=== PATIENT | male | born 1955 | race Caucasian/White ===

== ENCOUNTER 2022-06-04 09:17 | Inpatient (IN) | payer OTHER ==
[~2022-06-04] VITALS: Ht 180.3 cm; Wt 76.7 kg
[2022-06-04 09:22] VITALS: BP_SYST 146
[2022-06-04] MEDS ORDERED: NACL 0.9% 1,000 ML IV ONE (10:15)
[2022-06-04 10:43] LABS: BASOPHILS % (AUTO) 0.6 % (0.0-2.0); EOSINOPHILS # (AUTO) 0.2 K/uL (0.0-0.4); EOSINOPHILS % (AUTO) 2.3 % (0.0-4.0); HEMATOCRIT 43.9 % (36-54); HEMOGLOBIN 15.2 g/dL (14.0-18.0); LYMPHOCYTES # (AUTO) 0.8 K/uL (1.0-5.5); LYMPHOCYTES % (AUTO) 12.3 % (20.5-51.5); MEAN CORPUSCULAR HEMOGLOBIN 30 pg (27-31); MEAN CORPUSCULAR HGB CONC 35 % (32-36); MEAN CORPUSCULAR VOLUME 87 fL (79.0-98.0); MONOCYTES # (AUTO) 0.6 K/uL (0.0-1.0); MONOCYTES % (AUTO) 9.6 % (1.7-9.3); NEUTROPHILS # (AUTO) 4.9 K/uL (1.8-7.7); NEUTROPHILS % (AUTO) 75.2 % (40.0-70.0); PLATELET COUNT (AUTO) 245 K/uL (130-430); RED BLOOD CELL COUNT(AUTO) 5.06 MIL/uL (4.2-6.2); RED CELL DISTRIBUTION WIDTH 14.9 % (9.0-15.0); WHITE BLOOD COUNT (AUTO) 6.5 K/uL (4.8-10.8)
[2022-06-04 11:01] LABS: PROTHROMBIN TIME 10.5 SECS (9.5-12.5)
[2022-06-04 11:08] LABS: ANION GAP 7 (5-15); CALCIUM 9.8 mg/dL (8.4-11.0); CHLORIDE 98 mmol/L (98-107); CREATININE 0.87 mg/dL (0.55-1.30); GFR AFRICAN AMERICAN 112 mL/min (>90); GLUCOSE 233 mg/dL (70-99); POTASSIUM 3.1 mmol/L (3.5-5.1); SODIUM SERUM 136 mmol/L (136-145); UREA NITROGEN, BLOOD 10 mg/dL (8-21)
[2022-06-04 11:12] LABS: ALANINE AMINOTRANSFERASE 862 U/L (12-78); ALBUMIN 2.9 g/dL (3.4-4.8); ASPARTATE AMINOTRANSFERASE 487 U/L (10-37); TOTAL BILIRUBIN 6.7 mg/dL (0.0-1.0)
[2022-06-04 11:15] LABS: ACETAMINOPHEN < 1 ug/mL (1-30); ALCOHOL, BLOOD < 3 mg/dL (<10)
[2022-06-04 11:38] LABS: BARBITURATE, URINE NEGATIVE (NEG <=200); BENZODIAZEPINE, URINE NEGATIVE (NEG <=150); CANNABINOID, URINE NEGATIVE (NEG <=50); COCAINE, URINE NEGATIVE (NEG <=150); METHAMPHETAMINES SCREEN,URINE NEGATIVE (NEG <=500); OPIATE, URINE NEGATIVE (NEG <=100); PHENCYCLIDINE SCREEN,URINE NEGATIVE (NEG <=25); UR TRICYCLIC ANTIDEPRESSANTS NEGATIVE (NEG <=300); URINE AMPHETAMINE NEGATIVE (NEG <=500); URINE METHADONE NEGATIVE (NEG <=200); URINE OXYCODONE SCREEN NEGATIVE (NEG <=100); URINE PROPOXYPHENE SCREEN NEGATIVE (NEG <=300)
[2022-06-04] MEDS ORDERED: DIVA500T4 PO (11:41)
[2022-06-04] MEDS ORDERED: DULO60CA42 PO (11:41)
[2022-06-04] MEDS ORDERED: LIP40 PO (11:41)
[2022-06-04] MEDS ORDERED: AMLO5TAB92 PO (11:41)
[2022-06-04] MEDS ORDERED: LOSA50TA28 PO (11:41)
[2022-06-04] MEDS ORDERED: PIOG15TA8 PO (11:41)
[2022-06-04] MEDS ORDERED: IBUPROFEN 600 MG TABLET PO ONE (12:15)
[2022-06-04] MEDS ORDERED: NACL 0.9% 1,000 ML IV SCH (12:45)
[2022-06-04] MEDS ORDERED: ACETAMINOPHEN 500 MG TABLET PO PRN (14:00)
[2022-06-04] MEDS ORDERED: ZOLPIDEM TARTRATE 5 MG TABLET PO PRN (14:00)
[2022-06-04] MEDS ORDERED: guaiFENesin/DEXTROMETHORPHAN 10 ML UDC PO PRN (14:00)
[2022-06-04] MEDS ORDERED: ONDANSETRON HCL 4 MG/2 ML VIAL IVP PRN (14:00)
[2022-06-04 14:25] LABS: CLARITY/URINE CLEAR (CLEAR); COLOR,URINE ORANGE (YELLOW); GLUCOSE,URINE 1+ (NEGATIVE); KETONES,URINE NEGATIVE (NEGATIVE); LEUKOCYTE ESTERASE ,URINE NEGATIVE (NEGATIVE); NITRITE, URINE NEGATIVE (NEGATIVE); PH,URINE 6.5 (5.0-8.0); PROTEIN URINE NEGATIVE (NEGATIVE); UROBILINOGEN,URINE 0.2 (0.2-1.0)
[2022-06-04 14:31] LABS: BLOOD, URINE TRACE (NEGATIVE)
[2022-06-04 14:33] LABS: BILIRUBIN,URINE 2+ (NEGATIVE)
[2022-06-04 14:58] LABS: BACTERIA,URINE None Seen /HPF (None Seen); RBC,URINE 0-3 /HPF (0-3); WBC,URINE NONE SEEN /HPF (0-3)
[2022-06-04 14:59] LABS: MUCUS,URINE 1+ /LPF (None Seen)
[2022-06-04 15:22] LABS: FREE T4 (FREE THYROXINE) 1.2 ng/dl (0.8-1.5); THYROID STIMULATING HORMONE 1.7 uIu/mL (0.36-3.74)
[2022-06-04 16:00] VITALS: BP_SYST 142
[2022-06-04] MEDS: POTASSIUM CHLORIDE 20 MEQ TAB.PRT.SR PO PRN (18:01)
[2022-06-04] MEDS ORDERED: POTASSIUM CHLORIDE 20 MEQ TAB.PRT.SR ONE (18:03)
[2022-06-04] MEDS: HYDROcodone/ACETAMIN 7.5-325 MG TAB PO PRN (20:51)
[2022-06-04] MEDS: D5NS 1,000 ML IV SCH (22:20)
[2022-06-05 00:25] VITALS: BP_SYST 138
[2022-06-05 00:56] VITALS: BP_SYST 140
[2022-06-05] MEDS: HYDROcodone/ACETAMIN 7.5-325 MG TAB PO PRN ×3 (02:48→18:33)
[2022-06-05 06:42] LABS: BASOPHILS # (AUTO) 0.1 K/uL (0.0-0.2); EOSINOPHILS # (AUTO) 0.2 K/uL (0.0-0.4); EOSINOPHILS % (AUTO) 4.3 % (0.0-4.0); HEMATOCRIT 37.1 % (36-54); HEMOGLOBIN 12.7 g/dL (14.0-18.0); LYMPHOCYTES # (AUTO) 0.8 K/uL (1.0-5.5); LYMPHOCYTES % (AUTO) 16.4 % (20.5-51.5); MEAN CORPUSCULAR HEMOGLOBIN 30 pg (27-31); MEAN CORPUSCULAR HGB CONC 34 % (32-36); MEAN CORPUSCULAR VOLUME 87 fL (79.0-98.0); MONOCYTES # (AUTO) 0.6 K/uL (0.0-1.0); MONOCYTES % (AUTO) 12.6 % (1.7-9.3); NEUTROPHILS # (AUTO) 3.3 K/uL (1.8-7.7); NEUTROPHILS % (AUTO) 65.7 % (40.0-70.0); PLATELET COUNT (AUTO) 214 K/uL (130-430); RED BLOOD CELL COUNT(AUTO) 4.27 MIL/uL (4.2-6.2); RED CELL DISTRIBUTION WIDTH 14.6 % (9.0-15.0)
[2022-06-05 06:53] LABS: PROTHROMBIN TIME 10.3 SECS (9.5-12.5)
[2022-06-05 06:59] LABS: CALCIUM 8.8 mg/dL (8.4-11.0); CREATININE 0.64 mg/dL (0.55-1.30); POTASSIUM 3.4 mmol/L (3.5-5.1)
[2022-06-05 08:00] VITALS: BP_SYST 175
[2022-06-05] MEDS: MORPHINE 2 MG/ML INJ. SYRINGE IVP PRN ×2 (09:01→16:09)
[2022-06-05 10:05] LABS: ALBUMIN 2.2 g/dL (3.4-4.8); TOTAL BILIRUBIN 5.2 mg/dL (0.0-1.0)
[2022-06-05] MEDS: D5NS 1,000 ML IV SCH (11:05)
[2022-06-05] MEDS ORDERED: amLODIPine BESYLATE 5 MG TABLET PO ONE (13:15)
[2022-06-05] MEDS ORDERED: LOSARTAN POTASSIUM 50 MG TABLET (COZAAR) PO ONE (13:30)
[2022-06-05] MEDS ORDERED: PIOGLITAZONE HCL 15 MG TABLET PO ONE (13:30)
[2022-06-05] MEDS ORDERED: DIVALPROEX SODIUM 500 MG TAB.SR.24H (DEPAKOTE ER) PO ONE (13:30)
[2022-06-05] MEDS ORDERED: ATORVASTATIN 20 MG TABLET PO ONE (13:30)
[2022-06-05] MEDS ORDERED: DULoxetine HCL 30 MG CAPSULE.DR (CYMBALTA) PO ONE (13:30)
[2022-06-05 16:00] VITALS: BP_SYST 153
[2022-06-05] MEDS: PANTOPRAZOLE SODIUM 40 MG TAB PO SCH (18:21)
[2022-06-05] MEDS: INSULIN REGULAR, HUMAN 100 UNITS/ML, 10 ML VIAL (humuLIN R) SUBCUT PRN ×2 (18:25→20:46)
[2022-06-06] MEDS: HYDROcodone/ACETAMIN 7.5-325 MG TAB PO PRN ×3 (02:28→20:47)
[2022-06-06 06:54] LABS: ALBUMIN 2.6 g/dL (3.4-4.8); CALCIUM 8.9 mg/dL (8.4-11.0); CREATININE 0.61 mg/dL (0.55-1.30); POTASSIUM 3.4 mmol/L (3.5-5.1); TOTAL BILIRUBIN 5.9 mg/dL (0.0-1.0)
[2022-06-06 07:06] LABS: AFP, TUMOR MARKER 1.6 ng/mL (0.0-8.4)
[2022-06-06 07:07] LABS: BASOPHILS # (AUTO) 0.1 K/uL (0.0-0.2); BASOPHILS % (AUTO) 1.6 % (0.0-2.0); EOSINOPHILS # (AUTO) 0.3 K/uL (0.0-0.4); EOSINOPHILS % (AUTO) 3.9 % (0.0-4.0); HEMATOCRIT 36.1 % (36-54); HEMOGLOBIN 13.1 g/dL (14.0-18.0); LYMPHOCYTES # (AUTO) 1.6 K/uL (1.0-5.5); LYMPHOCYTES % (AUTO) 18.6 % (20.5-51.5); MEAN CORPUSCULAR HEMOGLOBIN 31 pg (27-31); MEAN CORPUSCULAR HGB CONC 36 % (32-36); MEAN CORPUSCULAR VOLUME 86 fL (79.0-98.0); MONOCYTES # (AUTO) 0.8 K/uL (0.0-1.0); MONOCYTES % (AUTO) 9.5 % (1.7-9.3); NEUTROPHILS # (AUTO) 5.7 K/uL (1.8-7.7); NEUTROPHILS % (AUTO) 66.4 % (40.0-70.0); PLATELET COUNT (AUTO) 375 K/uL (130-430); RED BLOOD CELL COUNT(AUTO) 4.19 MIL/uL (4.2-6.2); RED CELL DISTRIBUTION WIDTH 15.2 % (9.0-15.0); WHITE BLOOD COUNT (AUTO) 8.6 K/uL (4.8-10.8)
[2022-06-06] MEDS: INSULIN REGULAR, HUMAN 100 UNITS/ML, 10 ML VIAL (humuLIN R) SUBCUT PRN ×3 (07:57→16:54)
[2022-06-06 08:14] VITALS: BP_SYST 160
[2022-06-06] MEDS: PANTOPRAZOLE SODIUM 40 MG TAB PO SCH (09:00)
[2022-06-06] MEDS ORDERED: DIATR MEGLU/DIATRIZ SOD 30 ML SOLUTION PO ONE (09:07)
[2022-06-06] MEDS: amLODIPine BESYLATE 5 MG TABLET PO SCH (09:09)
[2022-06-06] MEDS: PIOGLITAZONE HCL 15 MG TABLET PO SCH (09:09)
[2022-06-06] MEDS: ATORVASTATIN 20 MG TABLET PO SCH (09:10)
[2022-06-06] MEDS: LOSARTAN POTASSIUM 50 MG TABLET (COZAAR) PO SCH (09:10)
[2022-06-06] MEDS: DULoxetine HCL 30 MG CAPSULE.DR (CYMBALTA) PO SCH (09:11)
[2022-06-06 10:06] LABS: ANTI NUCLEAR AB WITH REFLEX Negative (Negative)
[2022-06-06] MEDS ORDERED: iohexoL 350 mgI/mL, 100 ML INFUS..BTL IV ONE (10:18)
[2022-06-06] MEDS: DIVALPROEX SODIUM 500 MG TAB.SR.24H (DEPAKOTE ER) PO SCH (11:21)
[2022-06-06] MEDS: POTASSIUM CHLORIDE 20 MEQ TAB.PRT.SR PO PRN (11:22)
[2022-06-06 12:00] VITALS: BP_SYST 154
[2022-06-06 14:06] LABS: HEPATITIS A AB, IgM Negative (Negative); HEPATITIS B CORE AB, IgM Negative (Negative); HEPATITIS B SURFACE AG Negative (Negative)
[2022-06-06 17:02] VITALS: BP_SYST 145
[2022-06-06 20:00] VITALS: BP_SYST 146
[2022-06-07] VITALS: BP_SYST 140
[2022-06-07 04:00] VITALS: BP_SYST 139
[2022-06-07] MEDS: HYDROcodone/ACETAMIN 7.5-325 MG TAB PO PRN ×2 (05:09→18:11)
[2022-06-07 06:19] LABS: BASOPHILS # (AUTO) 0.1 K/uL (0.0-0.2); EOSINOPHILS # (AUTO) 0.2 K/uL (0.0-0.4); EOSINOPHILS % (AUTO) 3.5 % (0.0-4.0); HEMATOCRIT 41.8 % (36-54); HEMOGLOBIN 14.5 g/dL (14.0-18.0); LYMPHOCYTES # (AUTO) 1.1 K/uL (1.0-5.5); LYMPHOCYTES % (AUTO) 19.2 % (20.5-51.5); MEAN CORPUSCULAR HEMOGLOBIN 30 pg (27-31); MEAN CORPUSCULAR HGB CONC 35 % (32-36); MEAN CORPUSCULAR VOLUME 86 fL (79.0-98.0); MONOCYTES # (AUTO) 0.6 K/uL (0.0-1.0); MONOCYTES % (AUTO) 10.6 % (1.7-9.3); NEUTROPHILS # (AUTO) 3.9 K/uL (1.8-7.7); NEUTROPHILS % (AUTO) 65.7 % (40.0-70.0); PLATELET COUNT (AUTO) 232 K/uL (130-430); RED BLOOD CELL COUNT(AUTO) 4.85 MIL/uL (4.2-6.2); RED CELL DISTRIBUTION WIDTH 15.3 % (9.0-15.0); WHITE BLOOD COUNT (AUTO) 5.9 K/uL (4.8-10.8)
[2022-06-07] MEDS: INSULIN REGULAR, HUMAN 100 UNITS/ML, 10 ML VIAL (humuLIN R) SUBCUT PRN ×4 (06:23→20:47)
[2022-06-07] MEDS: INDOMETHACIN 50 MG SUPP.RECT RC ONE ×2 (07:00→08:10)
[2022-06-07 07:39] LABS: PROTHROMBIN TIME 10.3 SECS (9.5-12.5)
[2022-06-07] MEDS ORDERED: GLYCOPYRROLATE 0.2 MG/ML VIAL ONE (07:45)
[2022-06-07] MEDS ORDERED: ONDANSETRON HCL 4 MG/2 ML VIAL ONE (07:45)
[2022-06-07] MEDS ORDERED: PHENYLEPHRINE HCL 10 MG/ML VIAL (NEOSYNEPHRINE) ONE (07:45)
[2022-06-07] MEDS ORDERED: NS 1000 ML IV.SOLN IV ONE (07:45)
[2022-06-07] MEDS ORDERED: KETOROLAC TROMETHAMINE 30 MG VIAL ONE (07:45)
[2022-06-07] MEDS ORDERED: METOCLOPRAMIDE HCL 10 MG/2 ML VIAL ONE (07:45)
[2022-06-07] MEDS ORDERED: DEXAMETHASONE SOD PHOSPHATE 4 MG/ML VIAL ONE (07:45)
[2022-06-07] MEDS ORDERED: PROPOFOL 200MG/ 20ML VIAL (DIPRIVAN) IV ONE (07:45)
[2022-06-07] MEDS ORDERED: ePHEDrine sulfate 50 MG/ML VIAL ONE (07:45)
[2022-06-07] MEDS ORDERED: SEVOFLURANE 15 MIN GAS INH ONE (07:45)
[2022-06-07] MEDS ORDERED: ROCURONIUM BROMIDE 10 MG/ML (ZEMURON) ONE (07:45)
[2022-06-07 08:03] LABS: ALBUMIN 2.9 g/dL (3.4-4.8); CALCIUM 9.7 mg/dL (8.4-11.0); CREATININE 0.85 mg/dL (0.55-1.30); POTASSIUM 3.8 mmol/L (3.5-5.1)
[2022-06-07] MEDS ORDERED: HYDROmorphone 1 MG/ML INJ. CARTRIDGE IVP PRN (08:45)
[2022-06-07] MEDS ORDERED: NACL 0.9% 1,000 ML IV SCH (08:45)
[2022-06-07] MEDS ORDERED: KETOROLAC TROMETHAMINE 30 MG VIAL IVP PRN (08:45)
[2022-06-07] MEDS ORDERED: ONDANSETRON HCL 4 MG/2 ML VIAL IVP PRN (08:45)
[2022-06-07] MEDS: DULoxetine HCL 30 MG CAPSULE.DR (CYMBALTA) PO SCH (09:00)
[2022-06-07] MEDS: ATORVASTATIN 20 MG TABLET PO SCH (11:26)
[2022-06-07] MEDS: PIOGLITAZONE HCL 15 MG TABLET PO SCH (11:26)
[2022-06-07] MEDS: LOSARTAN POTASSIUM 50 MG TABLET (COZAAR) PO SCH (11:27)
[2022-06-07] MEDS: PANTOPRAZOLE SODIUM 40 MG TAB PO SCH (11:27)
[2022-06-07] MEDS: amLODIPine BESYLATE 5 MG TABLET PO SCH (11:27)
[2022-06-07 11:29] VITALS: BP_SYST 143
[2022-06-07] MEDS: DIVALPROEX SODIUM 500 MG TAB.SR.24H (DEPAKOTE ER) PO SCH (11:54)
[2022-06-07 13:06] LABS: ANTI-SMOOTH MUSCLE AB 1 Units (0-19)
[2022-06-07 16:01] VITALS: BP_SYST 116
[2022-06-07 20:00] VITALS: BP_SYST 117
[2022-06-08] VITALS: BP_SYST 119
[2022-06-08] MEDS: HYDROcodone/ACETAMIN 7.5-325 MG TAB PO PRN ×2 (03:10→12:03)
[2022-06-08 04:00] VITALS: BP_SYST 130
[2022-06-08 07:07] LABS: BASOPHILS % (AUTO) 0.5 % (0.0-2.0); EOSINOPHILS # (AUTO) 0.1 K/uL (0.0-0.4); EOSINOPHILS % (AUTO) 1.2 % (0.0-4.0); HEMATOCRIT 39.2 % (36-54); HEMOGLOBIN 13.7 g/dL (14.0-18.0); LYMPHOCYTES # (AUTO) 1.2 K/uL (1.0-5.5); LYMPHOCYTES % (AUTO) 15.8 % (20.5-51.5); MEAN CORPUSCULAR HEMOGLOBIN 30 pg (27-31); MEAN CORPUSCULAR HGB CONC 35 % (32-36); MEAN CORPUSCULAR VOLUME 87 fL (79.0-98.0); MONOCYTES # (AUTO) 0.8 K/uL (0.0-1.0); MONOCYTES % (AUTO) 9.7 % (1.7-9.3); NEUTROPHILS # (AUTO) 5.7 K/uL (1.8-7.7); NEUTROPHILS % (AUTO) 72.8 % (40.0-70.0); PLATELET COUNT (AUTO) 216 K/uL (130-430); RED BLOOD CELL COUNT(AUTO) 4.49 MIL/uL (4.2-6.2); RED CELL DISTRIBUTION WIDTH 15.4 % (9.0-15.0); WHITE BLOOD COUNT (AUTO) 7.8 K/uL (4.8-10.8)
[2022-06-08 07:36] LABS: ALBUMIN 2.7 g/dL (3.4-4.8); CALCIUM 9.7 mg/dL (8.4-11.0); CREATININE 0.81 mg/dL (0.55-1.30); POTASSIUM 3.9 mmol/L (3.5-5.1); TOTAL BILIRUBIN 6.6 mg/dL (0.0-1.0)
[2022-06-08 08:00] VITALS: BP_SYST 158
[2022-06-08] MEDS: PANTOPRAZOLE SODIUM 40 MG TAB PO SCH (08:57)
[2022-06-08] MEDS: DULoxetine HCL 30 MG CAPSULE.DR (CYMBALTA) PO SCH (08:57)
[2022-06-08] MEDS: LOSARTAN POTASSIUM 50 MG TABLET (COZAAR) PO SCH (08:57)
[2022-06-08] MEDS: ATORVASTATIN 20 MG TABLET PO SCH (08:58)
[2022-06-08] MEDS: amLODIPine BESYLATE 5 MG TABLET PO SCH (08:58)
[2022-06-08] MEDS: PIOGLITAZONE HCL 15 MG TABLET PO SCH (08:58)
[2022-06-08] MEDS: DOCUSATE SODIUM 100 MG/10 ML UDC PO PRN (09:11)
[2022-06-08] MEDS: DIVALPROEX SODIUM 500 MG TAB.SR.24H (DEPAKOTE ER) PO SCH (11:51)
[2022-06-08 16:00] VITALS: BP_SYST 138
[2022-06-08] MEDS: INSULIN REGULAR, HUMAN 100 UNITS/ML, 10 ML VIAL (humuLIN R) SUBCUT PRN ×2 (17:52→20:58)
[2022-06-08 20:00] VITALS: BP_SYST 135
[2022-06-09] VITALS: BP_SYST 122
[2022-06-09] MEDS: DOCUSATE SODIUM 100 MG/10 ML UDC PO PRN (02:15)
[2022-06-09 04:00] VITALS: BP_SYST 125
[2022-06-09] MEDS: INSULIN REGULAR, HUMAN 100 UNITS/ML, 10 ML VIAL (humuLIN R) SUBCUT PRN ×4 (06:27→22:02)
[2022-06-09 07:05] LABS: BASOPHILS % (AUTO) 0.5 % (0.0-2.0); EOSINOPHILS # (AUTO) 0.2 K/uL (0.0-0.4); HEMATOCRIT 40.2 % (36-54); HEMOGLOBIN 13.8 g/dL (14.0-18.0); LYMPHOCYTES # (AUTO) 0.9 K/uL (1.0-5.5); LYMPHOCYTES % (AUTO) 9.3 % (20.5-51.5); MEAN CORPUSCULAR HEMOGLOBIN 30 pg (27-31); MEAN CORPUSCULAR HGB CONC 34 % (32-36); MEAN CORPUSCULAR VOLUME 87 fL (79.0-98.0); MONOCYTES % (AUTO) 9.8 % (1.7-9.3); NEUTROPHILS # (AUTO) 7.8 K/uL (1.8-7.7); NEUTROPHILS % (AUTO) 78.4 % (40.0-70.0); PLATELET COUNT (AUTO) 250 K/uL (130-430); RED BLOOD CELL COUNT(AUTO) 4.62 MIL/uL (4.2-6.2); RED CELL DISTRIBUTION WIDTH 15.2 % (9.0-15.0)
[2022-06-09 07:23] LABS: CALCIUM 10.1 mg/dL (8.4-11.0); CREATININE 0.9 mg/dL (0.55-1.30); POTASSIUM 3.8 mmol/L (3.5-5.1); TOTAL BILIRUBIN 8.2 mg/dL (0.0-1.0)
[2022-06-09 08:20] VITALS: BP_SYST 148
[2022-06-09] MEDS: PIOGLITAZONE HCL 15 MG TABLET PO SCH (09:00)
[2022-06-09] MEDS: ATORVASTATIN 20 MG TABLET PO SCH ×2 (11:26→11:30)
[2022-06-09] MEDS: DIVALPROEX SODIUM 500 MG TAB.SR.24H (DEPAKOTE ER) PO SCH (11:28)
[2022-06-09] MEDS: PANTOPRAZOLE SODIUM 40 MG TAB PO SCH (11:35)
[2022-06-09] MEDS: LOSARTAN POTASSIUM 50 MG TABLET (COZAAR) PO SCH (11:36)
[2022-06-09] MEDS: DULoxetine HCL 30 MG CAPSULE.DR (CYMBALTA) PO SCH (11:36)
[2022-06-09] MEDS: POLYETHYLENE GLYCOL 3350, 17 GM/ POWD.PACK PO SCH ×2 (11:37→21:00)
[2022-06-09] MEDS: amLODIPine BESYLATE 5 MG TABLET PO SCH (11:37)
[2022-06-09 14:02] LABS: FERRITIN 1939 ng/mL (30-400)
[2022-06-09 14:03] LABS: CARBOHYDRATE AG 19-9 3219 U/mL (0-35)
[2022-06-09 21:34] VITALS: BP_SYST 141
== END 2022-06-09 22:26 | disposition short-term general hospital (02) | DRG 444 ==
LOC: SED 09:17 → SMU 12:44
PROVIDERS: ADMIT Family Medicine; ATTEND Family Medicine
PROC: 0FJD8ZZ Inspection of Pancreatic Duct, Via Natural or Artificial Opening Endoscopic (ICD-10-PCS; principal; 2022-06-07 07:30)
DX: K83.1 Obstruction of bile duct (principal); E43 Unspecified severe protein-calorie malnutrition; K86.9 Disease of pancreas, unspecified; E11.9 Type 2 diabetes mellitus without complications; E78.5 Hyperlipidemia, unspecified; F03.90 Unspecified dementia, unspecified severity, without behavioral disturbance, psychotic disturbance, mood disturbance, and anxiety; I10 Essential (primary) hypertension; Z20.822 Contact with and (suspected) exposure to COVID-19; E87.6 Hypokalemia; M41.9 Scoliosis, unspecified; N28.1 Cyst of kidney, acquired; Z79.899 Other long term (current) drug therapy; Z68.23 Body mass index [BMI] 23.0-23.9, adult
CPT/HCPCS: 36415; 43262; 43274; 70450-TC; 71045; 74181; 76000; 76376; 76705; 80048; 80053; 80061; 80074; 80076; 80164; 80307; 81000; 82105; 82140; 82150; 82728; 82948; 82962; 83036; 83516; 83605; 83690; 83735; 83880; 84100; 84439; 84443; 84484; 85025; 85610-TC; 85730-TC; 86038; 86301; 87040; 87081; 93005; 96360; 99285; C1769; G0480; G0481; G0482; J1100; J1815; J1885; J2270; J2370; J2405; J2704; J2765; J3490; J7030; Q9964; Q9967

== ENCOUNTER 2022-06-25 04:06 | Emergency (ER) | payer OTHER ==
[~2022-06-25 04:06] MED LIST: AMLO5TAB92 PO; DIVA500T4 PO; DULO60CA42 PO; LIP40 PO; LOSA50TA28 PO; PIOG15TA8 PO
[2022-06-25 04:18] VITALS: BP_SYST 136
--- NOTE | 2022-06-25 05:00 | NUR ---
Patient to ER bed 3 to gown for evaluation. Side rails up. Report given to WILLIAMS MCKEON(REG).
--- NOTE | 2022-06-25 05:10 | NUR ---
PT PLACED IN BED 3 BY EMS, REPORT GIVING BY EMS, ASSUME CARE OF PT BY WILLIAMS RN, PT BIBA FOR COWART CATHETER NOT DRAINING X 1 DAY, LOWER ABD PAIN, PT LAST CHANGE 2 MONTHS AGO. HX- PANCREATIC CANCER. PLACED IN GOWN AND PLACED ON MONITOR.
--- NOTE | 2022-06-25 05:30 | NUR ---
# 16 FR Valle catheter with use of sterile technique. Immediate return of 200 cc DARK YELLOW urine noted. Bedside drainage bag placed below level of bladder. Urine sample collected and sent to lab. Pt tolerated procedure WELL. Patient arrived with valle in place, changed due to standard of practice prior to admission.
[2022-06-25] MEDS ORDERED: MORPHINE 4 MG INJ. 4 MG/ML VIAL IVP ONE (06:00)
[2022-06-25] MEDS ORDERED: PROCHLORPERAZINE EDISYLATE 10 MG/2 ML VIAL IVP ONE (06:00)
[2022-06-25] MEDS ORDERED: NACL 0.9% 1,000 ML IV ONE (06:00)
[2022-06-25 06:17] LABS: BASOPHILS # (AUTO) 0.3 K/uL (0.0-0.2); BASOPHILS % (AUTO) 3.4 % (0.0-2.0); EOSINOPHILS # (AUTO) 0.3 K/uL (0.0-0.4); EOSINOPHILS % (AUTO) 3.6 % (0.0-4.0); HEMATOCRIT 35.5 % (36-54); HEMOGLOBIN 12.1 g/dL (14.0-18.0); LYMPHOCYTES # (AUTO) 0.8 K/uL (1.0-5.5); LYMPHOCYTES % (AUTO) 8.7 % (20.5-51.5); MEAN CORPUSCULAR HEMOGLOBIN 29 pg (27-31); MEAN CORPUSCULAR HGB CONC 34 % (32-36); MEAN CORPUSCULAR VOLUME 86 fL (79.0-98.0); MONOCYTES # (AUTO) 0.5 K/uL (0.0-1.0); MONOCYTES % (AUTO) 5.1 % (1.7-9.3); NEUTROPHILS # (AUTO) 7.3 K/uL (1.8-7.7); NEUTROPHILS % (AUTO) 79.2 % (40.0-70.0); PLATELET COUNT (AUTO) 495 K/uL (130-430); RED BLOOD CELL COUNT(AUTO) 4.11 MIL/uL (4.2-6.2); RED CELL DISTRIBUTION WIDTH 15.8 % (9.0-15.0); WHITE BLOOD COUNT (AUTO) 9.2 K/uL (4.8-10.8)
[2022-06-25 06:22] LABS: CALCIUM 9.8 mg/dL (8.4-11.0); CREATININE 0.81 mg/dL (0.55-1.30); POTASSIUM 4.5 mmol/L (3.5-5.1)
[2022-06-25 06:27] LABS: ALBUMIN 2.5 g/dL (3.4-4.8); TOTAL BILIRUBIN 1.7 mg/dL (0.0-1.0)
[2022-06-25] MEDS ORDERED: CIPR250T4 PO (06:38)
[2022-06-25 06:42] LABS: BILIRUBIN,URINE NEGATIVE (NEGATIVE); BLOOD, URINE 1+ (NEGATIVE); COLOR,URINE YELLOW (YELLOW); GLUCOSE,URINE 3+ (NEGATIVE); KETONES,URINE TRACE (NEGATIVE); LEUKOCYTE ESTERASE ,URINE 1+ (NEGATIVE); NITRITE, URINE NEGATIVE (NEGATIVE); PH,URINE 5.5 (5.0-8.0); PROTEIN URINE TRACE (NEGATIVE)
[2022-06-25 06:43] LABS: CLARITY/URINE HAZY (CLEAR)
--- NOTE | 2022-06-25 07:18 | NUR ---
REPORT GIVEN TO GENA MCKEON.
--- NOTE | 2022-06-25 07:33 | NUR ---
PT WAS D/C'D HOME PER MD ORDER. Patient given written and verbal discharge instructions and verbalizes understanding. ER MD discussed with patient the results and treatment provided. Patient in stable condition. ID arm band removed. IV catheter removed intact and dressing applied, no active bleeding. Patient educated on pain management and to follow up with PMD. Pain Scale 1. Opportunity for questions provided and answered. Medication side effect fact sheet provided.
[2022-06-25 07:35] VITALS: BP_SYST 153
--- NOTE | 2022-06-25 07:54 | NUR ---
CALLED CAMILLA MA FOR TRANSPOTATION. SHE WILL ARRAGE IT.
[2022-06-25 10:33] LABS: BACTERIA,URINE MANY /HPF (None Seen); MUCUS,URINE 1+ /LPF (None Seen)
== END 2022-06-25 07:35 | disposition home or self-care (01) ==
LOC: SED 04:06
DX: Z46.6 Encounter for fitting and adjustment of urinary device (principal); E11.9 Type 2 diabetes mellitus without complications; I10 Essential (primary) hypertension; E78.5 Hyperlipidemia, unspecified; Z88.0 Allergy status to penicillin; Z79.899 Other long term (current) drug therapy
CPT/HCPCS: 99284; 96374; 96361; 96375; 80053; 81000; 85025; 87086; 36415; 51702; J0780; J2270; J7030

== ENCOUNTER 2022-07-22 04:53 | Emergency (ER) | payer OTHER ==
[~2022-07-22] VITALS: Ht 182.9 cm; Wt 81.6 kg
[~2022-07-22 04:53] MED LIST changes: +CIPR250T4 PO
[2022-07-22 04:58] VITALS: BP_SYST 131
--- NOTE | 2022-07-22 05:06 | NUR ---
Patient triaged and placed in ED room 2. VSS and patient appears in no acute distress at this time. MD notified of need for MSE. Triage report given to LINDA Daniel.
--- NOTE | 2022-07-22 05:07 | NUR ---
NATE Martinez at bedside examining patient.
--- NOTE | 2022-07-22 05:20 | NUR ---
I RECIEVED PT IN BED WITH C/O LOWER AND UPPER BACK PAINS.A 12 EKG DONE. VITALS DONE WNL.BLOOD CULTURES DRAWN. SENT TO RADIOLOGY .
--- NOTE | 2022-07-22 06:00 | NUR ---
MEDICATED WITH MORHINE ORDERED.COWART CATHETER (FROM HOME) IN PLACE .PT POSITIONED TO RIGHT SIDE
[2022-07-22] MEDS ORDERED: MORPHINE 2 MG/ML INJ. SYRINGE IM ONE (06:30)
[2022-07-22 06:40] LABS: PROTHROMBIN TIME 10.4 SECS (9.5-12.5)
[2022-07-22 07:03] LABS: BASOPHILS # (AUTO) 0.1 K/uL (0.0-0.2); BASOPHILS % (AUTO) 0.8 % (0.0-2.0); EOSINOPHILS # (AUTO) 0.3 K/uL (0.0-0.4); EOSINOPHILS % (AUTO) 3.2 % (0.0-4.0); HEMATOCRIT 33.8 % (36-54); LYMPHOCYTES # (AUTO) 1.3 K/uL (1.0-5.5); LYMPHOCYTES % (AUTO) 14.7 % (20.5-51.5); MEAN CORPUSCULAR VOLUME 87 fL (79.0-98.0); MONOCYTES # (AUTO) 0.6 K/uL (0.0-1.0); NEUTROPHILS # (AUTO) 6.7 K/uL (1.8-7.7); NEUTROPHILS % (AUTO) 74.3 % (40.0-70.0); PLATELET COUNT (AUTO) 397 K/uL (130-430); RED BLOOD CELL COUNT(AUTO) 3.91 MIL/uL (4.2-6.2)
--- NOTE | 2022-07-22 07:13 | NUR ---
report receieved fromkatina hendrickson rn. in [facility]. pt aao x4. resp even and nonlabored. mika @ 108. pending dispo
[2022-07-22 07:38] LABS: ANION GAP 13 (5-15); CALCIUM 8.8 mg/dL (8.4-11.0); CHLORIDE 98 mmol/L (98-107); CREATININE 0.53 mg/dL (0.55-1.30); GLUCOSE 165 mg/dL (70-99); POTASSIUM 3.2 mmol/L (3.5-5.1); UREA NITROGEN, BLOOD 11 mg/dL (8-21)
[2022-07-22 07:40] LABS: ACETAMINOPHEN < 1 ug/mL (1-30); ALANINE AMINOTRANSFERASE 42 U/L (12-78); ALBUMIN 2.6 g/dL (3.4-4.8); ASPARTATE AMINOTRANSFERASE 20 U/L (10-37); TOTAL BILIRUBIN 0.8 mg/dL (0.0-1.0)
[2022-07-22 07:51] LABS: GFR AFRICAN AMERICAN 199 mL/min (>90)
[2022-07-22 07:52] LABS: ALCOHOL, BLOOD < 3 mg/dL (<10)
--- NOTE | 2022-07-22 08:33 | NUR ---
CONTACT ISHAN PRECIADO (HOSPICE NURSE) [phone]
--- NOTE | 2022-07-22 09:08 | NUR ---
spoke to hospice superintendent and made aware pt pending d/c. arranging [facility] transport back to assisted living
--- NOTE | 2022-07-22 09:26 | NUR ---
bls transport eta 2 hours. spoke to porter sample case sal and made aware
--- NOTE | 2022-07-22 11:13 | NUR ---
[facility] here unit g19 emt akhil report given. pt care endorsed. all questions answered. pt aao x2 per baseline. resp even and nonlabored. vss. ready [facility]
--- NOTE | 2022-07-22 11:20 | NUR ---
given written and verbal discharge instructions and verbalizes understanding to [employer]. ER MD discussed with patient the results and treatment provided. Patient in stable condition. ID arm band removed. Rx of given. Patient educated on pain management and to follow up with PMD. Pain Scale . Opportunity for questions provided and answered. Medication side effect fact sheet provided. aao 2 per baseline. resp even and nonlabored. vss. nad. transported back to assisted living [facility]
[2022-07-22 11:22] VITALS: BP_SYST 112
== END 2022-07-22 11:18 | disposition home or self-care (01) ==
LOC: SED 04:53
DX: R55 Syncope and collapse (principal); R53.1 Weakness; E11.9 Type 2 diabetes mellitus without complications; I10 Essential (primary) hypertension; E78.5 Hyperlipidemia, unspecified; Z88.0 Allergy status to penicillin; Z79.899 Other long term (current) drug therapy
CPT/HCPCS: 99285; 96374; 70450; 71045; 80053; 85025; 85610; 87040; 84484; 36415; 93005; 76376; 83605; G0482; J2270; G0480; G0481